=== PATIENT | female | born 1985 | race Caucasian/White ===

== ENCOUNTER 2017-06-08 05:45 | Emergency (ER) | payer BC ==
[2017-06-08] MEDS ORDERED: Ondansetron 4 MG/2 ML SDV IVPUSH ONE (06:10)
[2017-06-08] MEDS ORDERED: Dicyclomine 10 MG Cap PO ONE (06:11)
[2017-06-08] MEDS ORDERED: Lactated Ringers 1,000 ML IV SCH (06:15)
--- NOTE | 2017-06-08 06:15 | EDM.PDOC ---
<Carlos Wood - Last Filed: 06/08/17 08:36> ED HPI GENERAL MEDICAL PROBLEM - General Chief Complaint: Gastrointestinal Problem Stated Complaint: DIAH. SINCE FRIDAY NITE Time Seen by Provider: 06/08/17 06:10 - Related Data Allergies Allergy/AdvReac Type Severity Reaction Status Date / Time No Known Allergies Allergy Verified 06/08/17 05:54 Home Meds: Home Meds Ciprofloxacin HCl [Cipro] 500 mg PO BID #10 tablet 06/08/17 [Rx] Liraglutide [Victoza] 1.8 mg SUBCUT DAILY 06/08/17 [History] Lisinopril 2.5 mg PO DAILY 06/08/17 [History] Omeprazole 20 mg PO DAILY 06/08/17 [History] Ondansetron [Zofran ODT] 4 mg PO Q6H PRN #20 tab.dis 06/08/17 [Rx] Spironolactone [Aldactone] 25 mg PO DAILY 06/08/17 [History] atorvaSTATin [Lipitor] 10 mg PO DAILY 06/08/17 [History] metFORMIN HCl [Metformin HCl] 1,000 mg PO BID 06/08/17 [History] Course - Vital Signs Last Recorded V/S: Last Vital Signs Temp 36.6 C 06/08/17 08:43 Pulse 85 06/08/17 08:43 Resp 16 06/08/17 08:43 BP 114/59 L 06/08/17 08:43 Pulse Ox 97 06/08/17 08:43 - Orders/Labs/Meds Labs: Laboratory Tests 06/08/17 06/08/17 06/08/17 Range/Units 06:20 06:20 06:40 WBC 13.99 H (3.98-10.04) K/mm3 RBC 4.90 (3.98-5.22) M/mm3 Hgb 15.2 (11.2-15.7) gm/L Hct 44.3 (34.1-44.9) % MCV 90.4 (79.4-94.8) fl MCH 31.0 (25.6-32.2) pg MCHC 34.3 (32.2-35.5) g/dl RDW Std Deviation 43.3 (36.4-46.3) fL Plt Count 269 (182-369) K/mm3 MPV 10.3 (9.4-12.3) fl Neutrophils % (Manual) 78 H (40-60) % Band Neutrophils % 0 (0-10) % Lymphocytes % (Manual) 21 (20-40) % Atypical Lymphs % 0 % Monocytes % (Manual) 1 L (2-10) % Eosinophils % (Manual) 0 L (0.7-5.8) % Basophils % (Manual) 0 L (0.1-1.2) Platelet Estimate Adequate RBC Morph Comment Normal Sodium 136 (136-145) mEq/L Potassium 3.8 (3.5-5.1) mEq/L Chloride 101 (98-107) mEq/L Carbon Dioxide 22 (21-32) mEq/L Anion Gap 16.8 H (5-15) BUN 13 (7-18) mg/dL Creatinine 1.0 (0.55-1.02) mg/dL Est Cr Clr Drug Dosing 77.81 mL/min Estimated GFR (MDRD) > 60 (>60) mL/min BUN/Creatinine Ratio 13.0 L (14-18) Glucose 170 H (74-106) mg/dL Calcium 9.2 (8.5-10.1) mg/dL Total Bilirubin 0.9 (0.2-1.0) mg/dL AST 32 (15-37) U/L ALT 89 H (14-59) U/L Alkaline Phosphatase 81 (46-116) U/L C-Reactive Protein 1.7 H* (<1.0) mg/dL Total Protein 8.2 (6.4-8.2) g/dl Albumin 4.2 (3.4-5.0) g/dl Globulin 4.0 gm/dL Albumin/Globulin Ratio 1.1 (1-2) Lipase 94 (73-393) U/L Urine Color (Yellow) Urine Appearance (Clear) Urine pH (5.0-8.0) Ur Specific [place] (1.005-1.030) Urine Protein (Negative) Urine Glucose (UA) (Negative) Urine Ketones (Negative) Urine Occult Blood (Negative) Urine Nitrite (Negative) Urine Bilirubin (Negative) Urine Urobilinogen (0.2-1.0) Ur Leukocyte Esterase (Negative) Urine RBC (0-5) /hpf Urine WBC (0-5) /hpf Ur Epithelial Cells (0-5) /hpf Urine Bacteria (FEW) /hpf Urine Mucus (FEW) /hpf C.difficile 027-NAP1-B1 Presumptive negative C. difficile Tox (PCR) Negative 06/08/17 Range/Units 08:00 WBC (3.98-10.04) K/mm3 RBC (3.98-5.22) M/mm3 Hgb (11.2-15.7) gm/L Hct (34.1-44.9) % MCV (79.4-94.8) fl MCH (25.6-32.2) pg MCHC (32.2-35.5) g/dl RDW Std Deviation (36.4-46.3) fL Plt Count (182-369) K/mm3 MPV (9.4-12.3) fl Neutrophils % (Manual) (40-60) % Band Neutrophils % (0-10) % Lymphocytes % (Manual) (20-40) % Atypical Lymphs % % Monocytes % (Manual) (2-10) % Eosinophils % (Manual) (0.7-5.8) % Basophils % (Manual) (0.1-1.2) Platelet Estimate RBC Morph Comment Sodium (136-145) mEq/L Potassium (3.5-5.1) mEq/L Chloride (98-107) mEq/L Carbon Dioxide (21-32) mEq/L Anion Gap (5-15) BUN (7-18) mg/dL Creatinine (0.55-1.02) mg/dL Est Cr Clr Drug Dosing mL/min Estimated GFR (MDRD) (>60) mL/min BUN/Creatinine Ratio (14-18) Glucose (74-106) mg/dL Calcium (8.5-10.1) mg/dL Total Bilirubin (0.2-1.0) mg/dL AST (15-37) U/L ALT (14-59) U/L Alkaline Phosphatase (46-116) U/L C-Reactive Protein (<1.0) mg/dL Total Protein (6.4-8.2) g/dl Albumin (3.4-5.0) g/dl Globulin gm/dL Albumin/Globulin Ratio (1-2) Lipase (73-393) U/L Urine Color Yellow (Yellow) Urine Appearance Clear (Clear) Urine pH 6.0 (5.0-8.0) Ur Specific [place] 1.010 (1.005-1.030) Urine Protein Negative (Negative) Urine Glucose (UA) Negative (Negative) Urine Ketones Negative (Negative) Urine Occult Blood Negative (Negative) Urine Nitrite Negative (Negative) Urine Bilirubin Negative (Negative) Urine Urobilinogen 0.2 (0.2-1.0) Ur Leukocyte Esterase Negative (Negative) Urine RBC 0-5 (0-5) /hpf Urine WBC 0-5 (0-5) /hpf Ur Epithelial Cells 0-5 (0-5) /hpf Urine Bacteria Not seen (FEW) /hpf Urine Mucus Not seen (FEW) /hpf C.difficile 027-NAP1-B1 C. difficile Tox (PCR) Meds: Medications Discontinued Medications Generic Name Dose Route Start Last Admin Trade Name Freq PRN Reason Stop Dose Admin Dicyclomine HCl 20 mg 06/08/17 06:11 06/08/17 06:21 Bentyl PO 06/08/17 06:12 20 mg ONETIME ONE Administration Lactated Ringer's 1,000 mls @ 999 mls/hr 06/08/17 06:15 06/08/17 06:21 Ringers, Lactated IV 999 mls/hr ASDIRECTED LEONILA Administration Ondansetron HCl 4 mg 06/08/17 06:10 06/08/17 06:21 Zofran IVPUSH 06/08/17 06:11 4 mg ONETIME ONE Administration - Re-Assessments/Exams Free Text/Narrative Re-Assessment/Exam: 06/08/17 08:[address] Webb. Her WBC was elevated at 13.99. Her anion gap was elevated at 16.8. Her glucose was elevated at 170. Her CRP was elevated at 1.7. Her UA shows no UTI. Her c-dif was negative. Her stool had moderate WBCs. I feel this is infectious diarrhea. Dr Webb ordered a culture of her stool. Until that comes back I will put her on some cipro and zofran for nausea and vomiting. Departure - Departure Time of Disposition: 20:40 Disposition: Home, Self-Care 01 Condition: Good Clinical Impression: Diarrhea Qualifiers: Diarrhea type: infectious Qualified Code(s): A09 - Infectious gastroenteritis and colitis, unspecified Nausea and vomiting Qualifiers: Vomiting type: unspecified Vomiting Intractability: non-intractable Qualified Code(s): R11.2 - Nausea with vomiting, unspecified - Discharge Information Prescriptions: Ciprofloxacin HCl [Cipro] 500 mg PO BID #10 tablet Ondansetron [Zofran ODT] 4 mg PO Q6H PRN #20 tab.dis PRN Reason: Nausea/Vomiting Instructions: Diarrhea, Adult, Nausea and Vomiting, Adult Referrals: Aimee Mark, RAG INSPECTOR [Primary Care Provider] - Forms: ED Department Discharge, ED Return to Work/School Form Additional Instructions: Take the cipro 2 times per day. Take the zofran by mouth every 6 hours as needed for nausea and vomiting. Drink plenty of fluids. Please return if you cannot keep any food or water down or if you develop more pain and if that pain travels to the right lower abdomen where your appendix is. <Chris Webb - Last Filed: 06/13/17 13:12> ED HPI GENERAL MEDICAL PROBLEM - General Source of Information: Reports: Patient, Family History Limitations: Reports: No Limitations (Mother) - History of Present Illness INITIAL COMMENTS - FREE TEXT/NARRATIVE: 32-year-old female presents to the ED with persistent significant diarrhea for the last 30 hours. Vomited 2 --once at the initial onset of illness and once again this morning. She reports diarrhea started late evening on Friday, June 06 and she's been going every 30-45 minutes since that time with fairly large volume fluid losses. She states the longer she is gone is 3 hours of sleep without a bowel movement. No blood noted in the stool. She has not been on any antibiotics in the last month. She is on multiple medications for diabetes control most recent medication added 2 weeks ago. She does not feel she's been exposed to any bad foods. No fever or chills. She estimated she's had about 12- 14 bowel movements in the last 24 hours. Associated mild abdominal cramping pain prior to need for bowel movement. Starting to feel weak and a little bit dizzy when she stands up. No fainting spells. Onset: Sudden Onset Date: 06/06/17 Onset Time: 23:00 Duration: Hour(s):, Constant Location: Reports: Other (Persistent diarrhea) Quality: Reports: Other (Large-volume diarrhea stool losses for over 30 hours.) Severity: Moderate Improves with: Reports: None Worsens with: Reports: None Context: Denies: Activity, Exercise, Lifting, Sick Contact, Trauma, Other Associated Symptoms: Reports: Malaise, Nausea/Vomiting, Weakness (Twice in the last 30 hours). 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), Fatigue , Decreased Appetite. Denies: Fever, Weight Loss HEENT: Reports: No Symptoms Respiratory: Reports: No Symptoms Cardiovascular: Reports: No Symptoms Endocrine: Reports: No Symptoms GI/Abdominal: Reports: Abdominal Pain (Mild intermittent cramping pain), Diarrhea, Vomiting (Vomited twice in the last 30 hours. ) : Reports: No Symptoms Musculoskeletal: Reports: No Symptoms Skin: Reports: No Symptoms Neurological: Reports: Dizziness Psychiatric: Reports: No Symptoms ED EXAM, GI/ABD - Physical Exam Exam: See Below Exam Limited By: No Limitations General Appearance: Alert, WD/WN, No Apparent Distress Eyes: Bilateral: Normal Appearance (No jaundice.) Throat/Mouth: Normal Inspection, Normal Lips, Normal Oropharynx, Other Head: Atraumatic, Normocephalic (Tongue remains moist) Neck: Normal Inspection, Supple, Non-Tender, Full Range of Motion. No: Lymphadenopathy (L), Lymphadenopathy (R) Respiratory/Chest: No Respiratory Distress, Lungs Clear, Normal Breath Sounds, No Accessory Muscle Use Cardiovascular: Normal Peripheral Pulses, Regular Rate, Rhythm, No Edema, No Gallop, No JVD, No Murmur, Tachycardia (Resting heart rate of 10 4/m.) GI/Abdominal Exam: Normal Bowel Sounds, Soft, Non-Tender, No Organomegaly, No Distention, No Abnormal Bruit, No Mass, Other (Large abdominal girth precludes ability to opiates solid organs.) Extremities: Normal Inspection, Normal Range of Motion, Non-Tender, No Pedal Edema Neurological: Alert, Oriented, CN II-XII Intact, Normal Cognition, Normal Gait Psychiatric: Normal Affect, Normal Mood Skin Exam: Warm, Dry, Intact, Normal Color, No Rash Course - Orders/Labs/Meds Labs: Laboratory Tests 06/08/17 06/08/17 06/08/17 Range/Units 06:20 06:20 06:40 WBC 13.99 H (3.98-10.04) K/mm3 RBC 4.90 (3.98-5.22) M/mm3 Hgb 15.2 (11.2-15.7) gm/L Hct 44.3 (34.1-44.9) % MCV 90.4 (79.4-94.8) fl MCH 31.0 (25.6-32.2) pg MCHC 34.3 (32.2-35.5) g/dl RDW Std Deviation 43.3 (36.4-46.3) fL Plt Count 269 (182-369) K/mm3 MPV 10.3 (9.4-12.3) fl Neutrophils % (Manual) 78 H (40-60) % Band Neutrophils % 0 (0-10) % Lymphocytes % (Manual) 21 (20-40) % Atypical Lymphs % 0 % Monocytes % (Manual) 1 L (2-10) % Eosinophils % (Manual) 0 L (0.7-5.8) % Basophils % (Manual) 0 L (0.1-1.2) Platelet Estimate Adequate RBC Morph Comment Normal Sodium 136 (136-145) mEq/L Potassium 3.8 (3.5-5.1) mEq/L Chloride 101 (98-107) mEq/L Carbon Dioxide 22 (21-32) mEq/L Anion Gap 16.8 H (5-15) BUN 13 (7-18) mg/dL Creatinine 1.0 (0.55-1.02) mg/dL Est Cr Clr Drug Dosing 77.81 mL/min Estimated GFR (MDRD) > 60 (>60) mL/min BUN/Creatinine Ratio 13.0 L (14-18) Glucose 170 H (74-106) mg/dL Calcium 9.2 (8.5-10.1) mg/dL Total Bilirubin 0.9 (0.2-1.0) mg/dL AST 32 (15-37) U/L ALT 89 H (14-59) U/L Alkaline Phosphatase 81 (46-116) U/L C-Reactive Protein 1.7 H* (<1.0) mg/dL Total Protein 8.2 (6.4-8.2) g/dl Albumin 4.2 (3.4-5.0) g/dl Globulin 4.0 gm/dL Albumin/Globulin Ratio 1.1 (1-2) Lipase 94 (73-393) U/L Urine Color (Yellow) Urine Appearance (Clear) Urine pH (5.0-8.0) Ur Specific [place] (1.005-1.030) Urine Protein (Negative) Urine Glucose (UA) (Negative) Urine Ketones (Negative) Urine Occult Blood (Negative) Urine Nitrite (Negative) Urine Bilirubin (Negative) Urine Urobilinogen (0.2-1.0) Ur Leukocyte Esterase (Negative) Urine RBC (0-5) /hpf Urine WBC (0-5) /hpf Ur Epithelial Cells (0-5) /hpf Urine Bacteria (FEW) /hpf Urine Mucus (FEW) /hpf C.difficile 027-NAP1-B1 Presumptive negative C. difficile Tox (PCR) Negative 06/08/17 Range/Units 08:00 WBC (3.98-10.04) K/mm3 RBC (3.98-5.22) M/mm3 Hgb (11.2-15.7) gm/L Hct (34.1-44.9) % MCV (79.4-94.8) fl MCH (25.6-32.2) pg MCHC (32.2-35.5) g/dl RDW Std Deviation (36.4-46.3) fL Plt Count (182-369) K/mm3 MPV (9.4-12.3) fl Neutrophils % (Manual) (40-60) % Band Neutrophils % (0-10) % Lymphocytes % (Manual) (20-40) % Atypical Lymphs % % Monocytes % (Manual) (2-10) % Eosinophils % (Manual) (0.7-5.8) % Basophils % (Manual) (0.1-1.2) Platelet Estimate RBC Morph Comment Sodium (136-145) mEq/L Potassium (3.5-5.1) mEq/L Chloride (98-107) mEq/L Carbon Dioxide (21-32) mEq/L Anion Gap (5-15) BUN (7-18) mg/dL Creatinine (0.55-1.02) mg/dL Est Cr Clr Drug Dosing mL/min Estimated GFR (MDRD) (>60) mL/min BUN/Creatinine Ratio (14-18) Glucose (74-106) mg/dL Calcium (8.5-10.1) mg/dL Total Bilirubin (0.2-1.0) mg/dL AST (15-37) U/L ALT (14-59) U/L Alkaline Phosphatase (46-116) U/L C-Reactive Protein (<1.0) mg/dL Total Protein (6.4-8.2) g/dl Albumin (3.4-5.0) g/dl Globulin gm/dL Albumin/Globulin Ratio (1-2) Lipase (73-393) U/L Urine Color Yellow (Yellow) Urine Appearance Clear (Clear) Urine pH 6.0 (5.0-8.0) Ur Specific [place] 1.010 (1.005-1.030) Urine Protein Negative (Negative) Urine Glucose (UA) Negative (Negative) Urine Ketones Negative (Negative) Urine Occult Blood Negative (Negative) Urine Nitrite Negative (Negative) Urine Bilirubin Negative (Negative) Urine Urobilinogen 0.2 (0.2-1.0) Ur Leukocyte Esterase Negative (Negative) Urine RBC 0-5 (0-5) /hpf Urine WBC 0-5 (0-5) /hpf Ur Epithelial Cells 0-5 (0-5) /hpf Urine Bacteria Not seen (FEW) /hpf Urine Mucus Not seen (FEW) /hpf C.difficile 027-NAP1-B1 C. difficile Tox (PCR) Meds: Medications Discontinued Medications Generic Name Dose Route Start Last Admin Trade Name Freq PRN Reason Stop Dose Admin Dicyclomine HCl 20 mg 06/08/17 06:11 06/08/17 06:21 Bentyl PO 06/08/17 06:12 20 mg ONETIME ONE Administration Lactated Ringer's 1,000 mls @ 999 mls/hr 06/08/17 06:15 06/08/17 06:21 Ringers, Lactated IV 999 mls/hr ASDIRECTED LEONILA Administration Ondansetron HCl 4 mg 06/08/17 06:10 06/08/17 06:21 Zofran IVPUSH 06/08/17 06:11 4 mg ONETIME ONE Administration - Radiology Interpretation Free Text/Narrative:: 32-year-old female presents to the ED with diarrhea 30 hours. She's been going on average every 30-45 minutes a substantial diarrhea no recent travel history. No recent antibiotic usage. No exposure to any reptiles or raw eggs. Associated intermittent nausea and has vomited twice in the last 30 hours once just before coming to the ED after she tried to drink some Gatorade. No history of significant diarrhea suggest a toxin in the stool to cause excessive secretory diarrhea. She has no fever . Plan IV fluids i.e. Ringer's lactate at open. Given Zofran 4 mg IV for nausea relief. Bentyl 20 mg per ora for relief of abdominal cramping pain and diarrhea. Tentatively she produces a stool while she 's in the department it will be assessed for white cells culture and C. difficile. - Re-Assessments/Exams Free Text/Narrative Re-Assessment/Exam: 06/08/17 06:58 so far only her white count is back at 13.99 with no differential yet. Therefore care will be turned over to Dr. Wood as it is change of shift. He will monitor her further Belinda for results. Ideally we need a stool for sampling for WBCs and to rule out C. difficile. My impression overall is that she has foodborne illness with the toxin to cause this much diarrhea. May have to he treated with Cipro 500 mg twice daily for 5-6 days to clear up diarrhea
[2017-06-08 08:45] VITALS: BP 114/59
== END 2017-06-08 08:50 | disposition home or self-care (01) ==
LOC: JD.ED 05:45
DX: A09 Infectious gastroenteritis and colitis, unspecified (principal); I10 Essential (primary) hypertension; E11.9 Type 2 diabetes mellitus without complications; Z79.84 Long term (current) use of oral hypoglycemic drugs; Z79.899 Other long term (current) drug therapy
CPT/HCPCS: 36415; 80053; 81001; 83690; 85025; 86140; 87046; 87493; 89055; 96361; 96374; 99284; A9270; J2405; J7120; 87427; 99283

== ENCOUNTER 2018-03-06 08:33 | Day surgery (SDC) | payer BC ==
--- NOTE | 2018-03-05 11:13 | PCM.PREANE ---
Preanesthetic Assessment - Anesthesia/Transfusion/Family Hx Anesthesia History: Prior Anesthesia Without Reaction (wisdom teeth) Family History of Anesthesia Reaction: No Transfusion History: No Prior Transfusion(s) Intubation History: Unknown - Review of Systems General: No Symptoms Pulmonary: No Symptoms Cardiovascular: Palpitations Gastrointestinal: No Symptoms (GERD) Neurological: No Symptoms Other: Reports: Diabetes (AM blood sugars= 0815= 147), Liver Problems (liver enzymes noted to be elevated) - Physical Assessment NPO Status Date: 03/05/18 NPO Status Time: 21:30 Pulse: 94 O2 Sat by Pulse Oximetry: 96 Respiratory Rate: 16 Blood Pressure: 143/77 Temperature: 36.5 C Height: 1.7 m Weight: 131 kg ASA Class: 2 Mental Status: Alert & Oriented x3 Airway Class: Mallampati = 2 Dentition: Reports: Normal Dentition, Caries Thyro-Mental Finger Breadths: 3 Mouth Opening Finger Breadths: 3 ROM/Head Extension: Full Lungs: Clear to Auscultation, Normal Respiratory Effort Cardiovascular: Regular Rate, Regular Rhythm, No Murmurs - Lab Values: Laboratory Last Values WBC 8.15 K/mm3 (3.98-10.04) 03/02/18 11:44 RBC 4.63 M/mm3 (3.98-5.22) 03/02/18 11:44 Hgb 14.0 gm/L (11.2-15.7) 03/02/18 11:44 Hct 41.2 % (34.1-44.9) 03/02/18 11:44 MCV 89.0 fl (79.4-94.8) 03/02/18 11:44 MCH 30.2 pg (25.6-32.2) 03/02/18 11:44 MCHC 34.0 g/dl (32.2-35.5) 03/02/18 11:44 RDW Std Deviation 41.4 fL (36.4-46.3) 03/02/18 11:44 Plt Count 307 K/mm3 (182-369) 03/02/18 11:44 MPV 10.3 fl (9.4-12.3) 03/02/18 11:44 Neut % (Auto) 64.3 % (34.0-71.1) 03/02/18 11:44 Lymph % (Auto) 24.8 % (19.3-51.7) 03/02/18 11:44 [place] % (Auto) 8.7 % (4.7-12.5) 03/02/18 11:44 Eos % (Auto) 1.7 (0.7-5.8) 03/02/18 11:44 Baso % (Auto) 0.4 % (0.1-1.2) 03/02/18 11:44 Neut # (Auto) 5.24 K/mm3 (1.56-6.13) 03/02/18 11:44 Lymph # (Auto) 2.02 K/mm3 (1.18-3.74) 03/02/18 11:44 [place] # (Auto) 0.71 K/mm3 (0.24-0.36) H 03/02/18 11:44 Eos # (Auto) 0.14 K/mm3 (0.04-0.36) 03/02/18 11:44 Baso # (Auto) 0.03 K/mm3 (0.01-0.08) 03/02/18 11:44 Sodium 135 mEq/L (136-145) L 03/02/18 11:44 Potassium 4.0 mEq/L (3.5-5.1) 03/02/18 11:44 Chloride 101 mEq/L (98-107) 03/02/18 11:44 Carbon Dioxide 24 mEq/L (21-32) 03/02/18 11:44 Anion Gap 14.0 (5-15) 03/02/18 11:44 BUN 13 mg/dL (7-18) 03/02/18 11:44 Creatinine 0.8 mg/dL (0.55-1.02) 03/02/18 11:44 Est Cr Clr Drug Dosing TNP 03/02/18 11:44 Estimated GFR (MDRD) > 60 mL/min (>60) 03/02/18 11:44 BUN/Creatinine Ratio 16.3 (14-18) 03/02/18 11:44 Glucose 127 mg/dL (74-106) H 03/02/18 11:44 Calcium 9.4 mg/dL (8.5-10.1) 03/02/18 11:44 Total Bilirubin 0.4 mg/dL (0.2-1.0) 03/02/18 11:44 AST 38 U/L (15-37) H 03/02/18 11:44 ALT 94 U/L (14-59) H 03/02/18 11:44 Alkaline Phosphatase 97 U/L (46-116) 03/02/18 11:44 Total Protein 7.7 g/dl (6.4-8.2) 03/02/18 11:44 Albumin 3.7 g/dl (3.4-5.0) 03/02/18 11:44 Globulin 4.0 gm/dL 03/02/18 11:44 Albumin/Globulin Ratio 0.9 (1-2) L 03/02/18 11:44 HCG, Qual Negative (NEGATIVE) 03/02/18 11:44 Blood Type O POSITIVE 03/02/18 11:44 Gel Antibody Screen Negative 03/02/18 11:44 All above labs reviewed and noted and within acceptable ranges to proceed with scheduled procedure. - Allergies Allergies/Adverse Reactions: Allergies Allergy/AdvReac Type Severity Reaction Status Date / Time No Known Allergies Allergy Verified 06/08/17 05:54 - Anesthesia Plan Pre-Op Medication Ordered: None - Acknowledgements Anesthesia Type Planned: General Anesthesia Pt an Appropriate Candidate for the Planned Anesthesia: Yes Alternatives and Risks of Anesthesia Discussed w Pt/Guardian: Yes Pt/Guardian Understands and Agrees with Anesthesia Plan: Yes PreAnesthesia Questionnaire Cardiovascular History: Reports: Hypertension Endocrine/Metabolic History: Reports: Diabetes, Type II (Controlled with multiple medications at present.), Other (See Below) ( hirsutism) - SUBSTANCE USE Smoking Status *Q: Never Smoker Recreational Drug Use History: No - HOME MEDS Home Medications: Home Meds Liraglutide [Victoza] 0.6 mg SUBCUT DAILY 06/08/17 [History] Lisinopril 2.5 mg PO DAILY 06/08/17 [History] Omeprazole 20 mg PO DAILY 06/08/17 [History] Spironolactone [Aldactone] 25 mg PO DAILY 06/08/17 [History] metFORMIN HCl [Metformin HCl] 1,000 mg PO BID 06/08/17 [History] Adapalene/Benzoyl Peroxide [Epiduo Forte 0.3-2.5% Gel Pump] 1 dose TOP BID PRN 03/05/18 [History] Insulin Degludec [Tresiba Flextouch U-200] 28 units SQ QPM 03/05/18 [History] - CURRENT (IN HOUSE) MEDS Current Meds: Current Medications Lactated Ringer's (Ringers, Lactated) 1,000 mls @ 125 mls/hr IV ASDIRECTED LEONILA Stop: 03/06/18 23:00 Lidocaine/Sodium Bicarbonate (Buffered Lidocaine 1% In Ns 8.4%) 0.25 ml IDERM ONETIME PRN PRN Reason: Prior to IV Start Stop: 03/06/18 18:00 Sodium Chloride (Saline Flush) 10 ml FLUSH ASDIRECTED PRN PRN Reason: Keep Vein Open Stop: 03/06/18 18:00
[~2018-03-06 08:33] MED LIST: Lactated Ringers 1,000 ML IV SCH; Lidocaine 1%/Sod Bicarbonate in NS 8.4% 1 ML Syringe IDERM PRN; Sodium Chloride 0.9% 10 ML Syringe FLUSH PRN
[2018-03-06] MEDS ORDERED: Sodium Chloride 0.9% 50 ML SDV ONE (08:57)
[2018-03-06] MEDS ORDERED: Lidocaine 1% with EPINEPHrine 1:100,000 20 ML MDV ONE (08:57)
[2018-03-06] MEDS ORDERED: Dexamethasone 4 MG/ML SDV ONE (09:02)
[2018-03-06] MEDS ORDERED: Lidocaine 1% 4 ML ONE (09:02)
[2018-03-06] MEDS ORDERED: Rocuronium 50 MG/5 ML Vial ONE (09:02)
[2018-03-06] MEDS ORDERED: Ketorolac 30 MG/ML SDV ONE (09:02)
[2018-03-06] MEDS ORDERED: ceFAZolin 1 GM Vial ONE (09:02)
[2018-03-06] MEDS ORDERED: Ondansetron 4 MG/2 ML SDV ONE (09:02)
[2018-03-06] MEDS ORDERED: HYDROmorphone 0.5 MG/0.5 ML Syringe ONE ×2 (09:02→10:21)
[2018-03-06] MEDS ORDERED: Lactated Ringers 1,000 ML ONE (09:02)
[2018-03-06] MEDS ORDERED: Propofol 200 MG/20 ML SDV ONE ×2 (09:03→09:45)
[2018-03-06] MEDS ORDERED: Midazolam 1 MG/ML 2 ML SDV ONE (09:03)
[2018-03-06] MEDS ORDERED: fentaNYL 250 MCG/5 ML SDV ONE (09:03)
[2018-03-06] MEDS ORDERED: Albuterol 6.7 GM Inhaler INH ONE (10:07)
[2018-03-06] MEDS ORDERED: Ondansetron 4 MG/2 ML SDV IVPUSH PRN ×2 (10:21→10:55)
[2018-03-06] MEDS ORDERED: fentaNYL 100 MCG/2 ML SDV IVPUSH PRN (10:21)
[2018-03-06] MEDS ORDERED: Haloperidol Lactate 5 MG/ML SDV IVPUSH PRN (10:21)
[2018-03-06] MEDS ORDERED: diphenhydrAMINE 50 MG/ML SDV IVPUSH PRN (10:21)
[2018-03-06] MEDS ORDERED: HYDROmorphone 0.5 MG/0.5 ML Syringe IVPUSH PRN (10:22)
[2018-03-06] MEDS ORDERED: Neostigmine Methylsulfate 1 MG/ML 5 ML Syringe ONE (10:25)
[2018-03-06] MEDS ORDERED: Lidocaine 1% 6 ML ONE (10:28)
[2018-03-06] MEDS ORDERED: Labetalol 100 MG/20 ML MDV ONE (10:31)
[2018-03-06] MEDS ORDERED: Albuterol 0.083% 2.5 MG/3 ML Neb Soln NEB ONE (10:45)
[2018-03-06] MEDS ORDERED: Acetaminophen/oxyCODONE 325-5 MG Tab PO PRN (10:55)
--- NOTE | 2018-03-06 11:02 | PCM.OPNOTE ---
- General Post-Op/Procedure Note Date of Surgery/Procedure: 03/06/18 Operative Procedure(s): Total vaginal hysterectomy with bilateral salpingectomy Findings: Ovaries bilaterally appeared functional as did the fallopian tubes. Uterus was upper limits normal size. Patient had a grade 2 cystocele grade 1-2 rectocele and a gaping introitus. Pre Op Diagnosis: 1. Menorrhagia. 2. 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 General endotracheal anesthesia was accomplished. After positioning, and adequate prep and drape, the procedure was then performed. Sterile speculum was placed in the vagina and cervix was visualized. Cervix was injected with lidocaine quarter percent with [id number] mL used. A full circumference incision was made in the cervical epithelium. The bladder was pushed well back off cervix. Posterior cul-de-sac was then entered sharply without problems. Left uterosacral was crossclamped with a Enseal vessel closure system. The left uterosacral and then the right uterosacral ligament pedicles were developed using the Enseal system. The anterior cul-de-sac was then entered without problems and the uterine vasculature, cardinal ligament and broad ligament then developed using Enseal vessel closure system. The uterus was inverted at this time and upper broad ligament fallopian tube pedicles were crossclamped with Nahid clamps. Specimen was totally removed. Both these pedicles were then secured with a Nahid stitch of #1 Vicryl. Modified Moschcowitz sutures was placed. Entrance into the posterior cul-de-sac was made through the posterior vaginal cuff using 0 Monocryl. Small amount of cul-de-sac peritoneum was bunched together and the right uterosacral ligament was grasped and included in the suture. The suture was the directed back to the left uterosacral ligament again bunching up some of the posterior cul-de-sac peritoneum. This stitch was then exteriorized going through the posterior vaginal cuff at the same point of entry. Suture was tagged. Left and right fallopian tube was normal in appearance.. Using Enseal vessel closure system each of the tubes was then removed and sent with the specimen. The Enseal vessel closure system was used to remove both ovaries. The patient was found to be hemostatically intact at this time. Vaginal cuff was sutured for hemostatic reasons with a running locked suture of 0 Monocryl from the 2 o' clock position to the 10 o'clock position posteriorly. Vaginal cuff was then closed from right to left side with a running locked suture of 0 Monocryl. Patient was returned to supine position and awakened from general endotracheal anesthesia. She tolerated the procedure was then left the operating room in satisfactory condition.
--- NOTE | 2018-03-06 11:12 | PCM.POSTAN ---
POST ANESTHESIA ASSESSMENT - MENTAL STATUS Mental Status: Alert - VITAL SIGNS Pulse Rate: 81 SaO2: 95 Resp Rate: 21 Blood Pressure: 152/88 Temperature: 37.0 C - RESPIRATORY Respiratory Status: Respiratory Rate WNL, Airway Patent, O2 Saturation Stable, Supplemental Oxygen - CARDIOVASCULAR CV Status: Pulse Rate WNL, Blood Pressure Stable - GASTROINTESTINAL GI Status: No Symptoms - POST OP HYDRATION Hydration Status: Adequate & Stable
--- NOTE | 2018-03-06 12:17 | PCM48HPAN ---
Post Anesthesia Note - EVALUATION WITHIN 48HRS OF ANESTHETIC Vital Signs in Normal Range: Yes Patient Participated in Evaluation: Yes Respiratory Function Stable: Yes Airway Patent: Yes Cardiovascular Function Stable: Yes Hydration Status Stable: Yes Pain Control Satisfactory: Yes Nausea and Vomiting Control Satisfactory: Yes Mental Status Recovered: Yes
[2018-03-06 13:30] VITALS: BP 130/57
== END 2018-03-06 13:15 | disposition home or self-care (01) ==
LOC: JD.SDS 08:33
PROVIDERS: ATTEND Obstetrics & Gynecology
DX: N80.0 Endometriosis of uterus (principal); N81.10 Cystocele, unspecified; N81.6 Rectocele; N81.89 Other female genital prolapse; I10 Essential (primary) hypertension; E11.9 Type 2 diabetes mellitus without complications; E66.9 Obesity, unspecified; Z68.42 Body mass index [BMI] 45.0-49.9, adult; K21.9 Gastro-esophageal reflux disease without esophagitis; Z79.84 Long term (current) use of oral hypoglycemic drugs; Z79.899 Other long term (current) drug therapy
CPT/HCPCS: 36415; 58552; 80053; 82962; 84703; 85025; 86850; 86900; 86901; 94640; A9270; J0690; J1100; J1170; J1885; J2001; J2250; J2405; J2710; J3010; J7120; J2704

== ENCOUNTER 2019-03-26 19:40 | Emergency (ER) | payer BC ==
[2019-03-26 20:00] VITALS: BP 139/87
[2019-03-26] MEDS ORDERED: Ondansetron 4 MG/2 ML SDV IVPUSH ONE (20:36)
[2019-03-26] MEDS ORDERED: HYDROmorphone 1 MG/ML Syringe IVPUSH STA (20:36)
[2019-03-26] MEDS ORDERED: Sodium Chloride 0.9% 10 ML Syringe FLUSH PRN (20:38)
[2019-03-26] MEDS ORDERED: Sodium Chloride 0.9% 1,000 ML IV SCH (20:45)
--- NOTE | 2019-03-26 21:01 | EDM.PDOC ---
ED HPI GENERAL MEDICAL PROBLEM - General Chief Complaint: Abdominal Pain Stated Complaint: ABDOMINAL PAIN Time Seen by Provider: 03/26/19 20:35 Source of Information: Reports: Patient, RN Notes Reviewed History Limitations: Reports: No Limitations - History of Present Illness INITIAL COMMENTS - FREE TEXT/NARRATIVE: Patient is a 34-year-old female who presents to the ED for the evaluation of lower abdominal pain. The patient notes that this started this morning. She states these pain to be sharp and shooting in nature. She did vomit once this morning, and has really not had an appetite the rest of the day. The patient feels like she has bowel fullness but has not had a BM today. She did have one episode of diarrhea this morning, but has not had any BM since. She states she had her last normal bowel movement yesterday. She has not ever felt a pain like this in the past. She states that the pain worsens with movement. She finds that laying still provides the best pain relief. She tried some Tums today however this did not provide much relief. She denies any dysuria or urinary frequency or urgency. She has had a hysterectomy, and she has not had any other abdominal surgeries. She does not think she's had any fever but felt chilled earlier. Lower Abdomen Pain Score (Numeric/FACES): 2 - Related Data Allergies Allergy/AdvReac Type Severity Reaction Status Date / Time No Known Allergies Allergy Verified 06/08/17 05:54 Home Meds: Home Meds Liraglutide [Victoza] 0.6 mg SUBCUT DAILY 06/08/17 [History] Lisinopril 2.5 mg PO DAILY 06/08/17 [History] Omeprazole 20 mg PO DAILY 06/08/17 [History] Spironolactone [Aldactone] 25 mg PO DAILY 06/08/17 [History] metFORMIN HCl [Metformin HCl] 1,000 mg PO BID 06/08/17 [History] Insulin Degludec [Tresiba Flextouch U-200] 28 units SQ QPM 03/05/18 [History] Ibuprofen 600 mg PO Q4HR PRN #30 tablet 03/06/18 [Rx] Past Medical History HEENT History: Reports: Impaired Vision Cardiovascular History: Reports: Hypertension Respiratory History: Reports: None Gastrointestinal History: Reports: None Genitourinary History: Reports: None 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: , 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 (See Below) Other LIQUOR MERCHANT History: menorrhagia, dysmenorrhea, Musculoskeletal History: Reports: None Neurological History: Reports: None Psychiatric History: Reports: None Endocrine/Metabolic History: Reports: Diabetes, Type II, Other (See Below) Hematologic History: Reports: None Immunologic History: Reports: None Oncologic (Cancer) History: Reports: None Dermatologic History: Reports: None - Past Surgical History Head Surgeries/Procedures: Reports: None HEENT Surgical History: Reports: Oral Surgery Respiratory Surgical History: Reports: None GI Surgical History: Reports: None Female Surgical History: Reports: None Neurological Surgical History: Reports: None Musculoskeletal Surgical History: Reports: None Oncologic Surgical History: Reports: None Dermatological Surgical History: Reports: None Social & Family History - Family History Family Medical History: Noncontributory - Tobacco Use Smoking Status *Q: Never Smoker - Caffeine Use Caffeine Use: Reports: Coffee - Recreational Drug Use Recreational Drug Use: No - Living Situation & Occupation Living situation: Reports: Occupation: Employed ED ROS GENERAL - Review of Systems Review Of Systems: See Below Constitutional: Reports: Chills. Denies: Fever HEENT: Reports: No Symptoms Respiratory: Reports: No Symptoms Cardiovascular: Reports: No Symptoms Endocrine: Reports: No Symptoms GI/Abdominal: Reports: Abdominal Pain (shooting bilateral lower abd pain), Diarrhea, Nausea, Vomiting. Denies: Constipation : Reports: No Symptoms Musculoskeletal: Reports: No Symptoms Skin: Reports: No Symptoms Neurological: Reports: No Symptoms Psychiatric: Reports: No Symptoms Hematologic/Lymphatic: Reports: No Symptoms Immunologic: Reports: No Symptoms ED EXAM, GI/ABD - Physical Exam Exam: See Below Exam Limited By: No Limitations General Appearance: Alert, WD/WN, No Apparent Distress Ears: Normal External Exam Nose: Normal Inspection Throat/Mouth: Normal Inspection, Normal Lips, Normal Teeth, Normal Gums, Normal Oropharynx, Normal Voice, No Airway Compromise Head: Atraumatic, Normocephalic Neck: Normal Inspection, Supple, Non-Tender, Full Range of Motion Respiratory/Chest: No Respiratory Distress, Lungs Clear, Normal Breath Sounds, No Accessory Muscle Use, Chest Non-Tender Cardiovascular: Normal Peripheral Pulses, Regular Rate, Rhythm, No Murmur GI/Abdominal Exam: Normal Bowel Sounds, Soft, No Distention, No Mass, Tender ( near umbilicus, but tender in LLQ and RLQ). No: Rigid, Rebound Extremities: Normal Inspection, Normal Capillary Refill Neurological: Alert, Oriented, Normal Cognition, No Motor/Sensory Deficits Psychiatric: Normal Affect, Normal Mood Skin Exam: Warm, Dry, Intact, Normal Color, No Rash Course - Vital Signs Last Recorded V/S: Last Vital Signs Temp 98.2 F 03/26/19 19:59 Pulse 117 H 03/26/19 19:59 Resp 20 03/26/19 19:59 BP 139/87 03/26/19 19:59 Pulse Ox 97 03/26/19 19:59 - Orders/Labs/Meds Orders: Active Orders 24 hr Category Date Time Status Peripheral IV Care [RC] . DIRECTED Care 03/26/19 20:38 Ordered Abdomen Pelvis w Cont [CT] Stat Exams 03/26/19 20:36 Ordered Sodium Chloride 0.9% [Normal Saline] 1,000 ml Med 03/26/19 20:45 Ordered IV ASDIRECTED Sodium Chloride 0.9% [Saline Flush] Med 03/26/19 20:38 Ordered 10 ml FLUSH ASDIRECTED PRN Peripheral IV Insertion Adult [OM.PC] Routine Oth 03/26/19 20:38 Ordered Medication Orders Sodium Chloride (Normal Saline) 1,000 mls @ 500 mls/hr IV ASDIRECTED LEONILA Last Admin: 03/26/19 20:56 Dose: 500 mls/hr Sodium Chloride (Saline Flush) 10 ml FLUSH ASDIRECTED PRN PRN Reason: Keep Vein Open Last Admin: 03/26/19 21:00 Dose: 10 ml Labs: Laboratory Tests 03/26/19 03/26/19 03/26/19 Range/Units 20:55 20:55 21:05 WBC 9.51 (3.98-10.04) K/mm3 RBC 4.98 (3.98-5.22) M/mm3 Hgb 15.3 (11.2-15.7) gm/L Hct 44.8 (34.1-44.9) % MCV 90.0 (79.4-94.8) fl MCH 30.7 (25.6-32.2) pg MCHC 34.2 (32.2-35.5) g/dl RDW Std Deviation 41.9 (36.4-46.3) fL Plt Count 279 (182-369) K/mm3 MPV 10.3 (9.4-12.3) fl Neutrophils % (Manual) 88 H (40-60) % Band Neutrophils % 2 (0-10) % Lymphocytes % (Manual) 7 L (20-40) % Atypical Lymphs % 0 % Monocytes % (Manual) 2 (2-10) % Eosinophils % (Manual) 1 (0.7-5.8) % Basophils % (Manual) 0 L (0.1-1.2) Platelet Estimate Adequate RBC Morph Comment Normal Sodium 137 (136-145) mEq/L Potassium 4.1 (3.5-5.1) mEq/L Chloride 101 (98-107) mEq/L Carbon Dioxide 24 (21-32) mEq/L Anion Gap 16.1 H (5-15) BUN 16 (7-18) mg/dL Creatinine 0.9 (0.55-1.02) mg/dL Est Cr Clr Drug Dosing 84.84 mL/min Estimated GFR (MDRD) > 60 (>60) mL/min BUN/Creatinine Ratio 17.8 (14-18) Glucose 169 H (74-106) mg/dL Calcium 9.1 (8.5-10.1) mg/dL Total Bilirubin 0.7 (0.2-1.0) mg/dL AST 16 (15-37) U/L ALT 53 (14-59) U/L Alkaline Phosphatase 80 (46-116) U/L Total Protein 7.4 (6.4-8.2) g/dl Albumin 3.8 (3.4-5.0) g/dl Globulin 3.6 gm/dL Albumin/Globulin Ratio 1.1 (1-2) Urine Color Yellow (Yellow) Urine Appearance Clear (Clear) Urine pH 5.5 (5.0-8.0) Ur Specific [place] 1.020 (1.005-1.030) Urine Protein Negative (Negative) Urine Glucose (UA) Negative (Negative) Urine Ketones Negative (Negative) Urine Occult Blood Negative (Negative) Urine Nitrite Negative (Negative) Urine Bilirubin Negative (Negative) Urine Urobilinogen 0.2 (0.2-1.0) Ur Leukocyte Esterase Negative (Negative) Urine RBC 0-5 (0-5) /hpf Urine WBC 0-5 (0-5) /hpf Ur Squamous Epith Cells 5-10 H (0-5) /hpf Urine Bacteria Few (FEW) /hpf Urine Mucus Few (FEW) /hpf Meds: Medications Generic Name Dose Route Start Last Admin Trade Name Kel PRN Reason Stop Dose Admin Sodium Chloride 1,000 mls @ 500 mls/hr 03/26/19 20:45 03/26/19 20:56 Normal Saline IV 500 mls/hr ASDIRECTED LEONILA Administration Sodium Chloride 10 ml 03/26/19 20:38 03/26/19 21:00 Saline Flush FLUSH 10 ml ASDIRECTED PRN Administration Keep Vein Open Discontinued Medications Generic Name Dose Route Start Last Admin Trade Name Kel PRN Reason Stop Dose Admin Hydromorphone HCl 1 mg 03/26/19 20:36 03/26/19 20:59 Dilaudid IVPUSH 03/26/19 20:37 1 mg ONETIME STA Administration Iohexol 100 ml 03/26/19 22:03 03/26/19 22:07 Omnipaque-300 IVPUSH 03/26/19 22:04 100 ml ONETIME ONE Administration Ondansetron HCl 4 mg 03/26/19 20:36 03/26/19 20:57 Zofran IVPUSH 03/26/19 20:37 4 mg ONETIME ONE Administration - Re-Assessments/Exams Free Text/Narrative Re-Assessment/Exam: 03/26/19 21:00 The patient presents to the ED for the evaluation of lower abdominal pain. I have ordered a UA, CBC, CMP, abdomen and pelvis CT with contrast, 4 mg Zofran, 1 mg IV Dilaudid and an IV bolus of fluids for initial management. 03/26/19 21:52 Patient's labs have returned, and do not demonstrate any focal abnormalities. These are all essentially within normal limits. 03/26/19 23:[address] is done, and demonstrates a non-dilated fluid-filled small bowel loops. Liquid stool within the right and transverse colon. Findings can suggest a gastroenteritis/diarrheal disease. 2 gastric distention of uncertain clinical significance. An element of gastroparesis cannot be excluded. [address] findings of acute appendicitis. 5 hepatomegaly, hepatic steatosis. 6. Compression fracture of the superior endplate of T11 recommend clinical correlation. It is likely that the patient is suffering just from a gastroenteritis in nature. I will discharge the patient home with general in general recommendations. Departure - Departure Time of Disposition: 23:43 Disposition: Home, Self-Care 01 Condition: Fair Clinical Impression: Gastroenteritis Abdominal pain Qualifiers: Abdominal location: lower abdomen, unspecified Qualified Code(s): R10.30 - Lower abdominal pain, unspecified - Discharge Information *PRESCRIPTION DRUG MONITORING PROGRAM REVIEWED*: No *COPY OF PRESCRIPTION DRUG MONITORING REPORT IN PATIENT CHRISTIANO: No Instructions: Viral Gastroenteritis, Adult, [id number] Referrals: Payton Turner PA-C [Primary Care Provider] - Forms: ED Department Discharge, ED Return to Work/School Form Additional Instructions: You have been evaluated in the ED today for your abdominal pain. Your laboratory evaluation was within normal limits, there is no acute bacterial infection happening at this time. This is likely due to a viral gastroenteritis. Your abdomen CT did not demonstrate any focal abnormalities that would be suggestive of your pain at this time. It did demonstrate cholelithiasis which are stones in your gallbladder. Recommend that you follow up with your primary care doctor for further management of this. Your CT did not demonstrate any sign of acute appendicitis at this time. You may take up to 600 mg ibuprofen every 6 hours as needed for abdominal cramping. Please return to the ED if her symptoms should change or worsen. - My Orders Last 24 Hours: My Active Orders 03/26/19 20:36 Abdomen Pelvis w Cont [CT] Stat 03/26/19 20:38 Peripheral IV Care [RC] . DIRECTED Sodium Chloride 0.9% [Saline Flush] 10 ml FLUSH ASDIRECTED PRN Peripheral IV Insertion Adult [OM.PC] Routine 03/26/19 20:45 Sodium Chloride 0.9% [Normal Saline] 1,000 ml IV ASDIRECTED - Assessment/Plan Last 24 Hours: My Active Orders 03/26/19 20:36 Abdomen Pelvis w Cont [CT] Stat 03/26/19 20:38 Peripheral IV Care [RC] . DIRECTED Sodium Chloride 0.9% [Saline Flush] 10 ml FLUSH ASDIRECTED PRN Peripheral IV Insertion Adult [OM.PC] Routine 03/26/19 20:45 Sodium Chloride 0.9% [Normal Saline] 1,000 ml IV ASDIRECTED
[2019-03-26] MEDS ORDERED: Iohexol 647 MG/ML 100 ML Bottle IVPUSH ONE (22:03)
--- NOTE | 2019-03-28 19:35 | CT ---
CT abdomen and pelvis Technique: Multiple axial sections were obtained from above the dome of the diaphragm inferiorly through the pubic symphysis. Intravenous contrast was utilized. Oral contrast was given which remains mostly within the stomach. Delayed images were also obtained through the bladder. Comparison: No prior abdominal imaging is available. Findings: Liver is generous in size and shows fatty infiltration. No focal abnormality is otherwise seen within the liver. Visualized lung bases show nothing acute. Spleen appears within normal limits. Adrenal gland on the left side shows a small nodule which is nonspecific regarding Hounsfield unit measurements for etiology but most likely represents benign adenoma. This finding measures about 1.4 cm in size. Pancreas appears within normal limits. Small gallstones are seen within the gallbladder. No inflammatory change is seen around the gallbladder. Kidneys show symmetric contrast enhancement without hydronephrosis or mass. No ureteral dilatation is seen. Delayed images show contrast within the distal ureters and within the bladder. Aorta shows no aneurysm. No retroperitoneal adenopathy or mesenteric abnormalities are seen. Small fat-containing umbilical hernia is noted. Additional small fat containing abdominal wall hernia is seen superior to the umbilicus measuring about 1.3 cm in size. Appendix is normal in size. No pelvic mass or adenopathy is seen. Bone window settings were reviewed which show minimal anterior wedging and associated Schmorl's node deformity within the superior endplate of 11 which is felt to be old. Impression: 1. Small fat-containing abdominal wall hernia above the umbilicus measuring 1.3 cm. 2. Gallstones without inflammatory change seen around the gallbladder. 3. Fatty infiltration within the liver. 4. Other incidental findings. Nothing acute is appreciated. Diagnostic code #2 I agree with preliminary report from [facility], finalized on, 03/27/19, 12:30 AM Central Time, code #2
== END 2019-03-26 23:54 | disposition home or self-care (01) ==
LOC: JD.ED 19:40
DX: K52.9 Noninfective gastroenteritis and colitis, unspecified (principal); I10 Essential (primary) hypertension; E11.9 Type 2 diabetes mellitus without complications; Z79.4 Long term (current) use of insulin; Z98.890 Other specified postprocedural states
CPT/HCPCS: 36415; 74177; 80053; 81001; 85007; 85027; 96361; 96374; 96375; 99284; J1170; J2405; J7040; Q9967